=== PATIENT | female | born 1990 | race Caucasian/White ===

== ENCOUNTER 2017-03-21 22:09 | Emergency (ER) | payer OTHER ==
[~2017-03-21] VITALS: Ht 160 cm; Wt 90.7 kg
[~2017-03-21 22:09] MED LIST: AMETHIA 0.15-01 EACH PO; CYCLOBENZAPRINE5 MG PO; IBUPROFEN 800800 MG PO; NORCO 5-325 TA1 EACH PO
[2017-03-21 23:15] LABS: ABSOLUTE NEUTROPHILS 10.2 thou/uL (1.4-8.2); BASOPHILS 0.3 % (0.0-2.0); EOSINOPHILS 3.1 % (0.0-3.0); HEMATOCRIT 38.3 % (37.0-47.0); HEMOGLOBIN 12.4 gm/dL (12.0-15.0); MCH 26.1 pg (26.0-34.0); MCHC 32.4 g/dL (28.0-37.0); MCV 80.6 fL (80.0-100.0); MONOCYTES 8.5 % (1.0-8.0); PLATELET COUNT 450 thou/uL (150-400); POLYS 72.1 % (36.0-66.0); RBC 4.75 mil/uL (4.20-5.00); RDW 14.2 % (10.5-14.5); WBC 14.2 thou/uL (4.0-11.0)
[2017-03-21 23:17] LABS: MANUAL DIFF NO
[2017-03-21 23:19] LABS: URINE BILIRUBIN NEGATIVE (Negative); URINE BLOOD TRACE (Negative); URINE COLOR YELLOW; URINE GLUCOSE-RANDOM* NEGATIVE (Negative); URINE KETONES NEGATIVE (Negative); URINE NITRITE NEGATIVE (Negative); URINE PROTEIN (DIPSTICK) NEGATIVE (Negative); URINE SPECIFIC GRAVITY <= 1.005 (1.003-1.035); URINE UROBILINOGEN 0.2 E.U./dl (0.2-1.0)
[2017-03-21 23:27] LABS: CREATININE 0.8 mg/dL (0.6-1.0); POTASSIUM 3.5 mmol/L (3.5-5.1)
[2017-03-21 23:33] LABS: ALBUMIN 3.3 g/dL (3.4-5.0); TOTAL BILIRUBIN 0.3 mg/dL (<0.1-1.0); TOTAL PROTEIN 7.7 g/dL (6.4-8.2)
[2017-03-22] MEDS ORDERED: DIFLUCAN150 MG PO (03:51)
[2017-03-22] MEDS ORDERED: ZOFRAN ODT4 MG PO (03:51)
[2017-03-22] MEDS ORDERED: FLAGYL500 MG PO (03:51)
[2017-03-22 05:02] VITALS: BP 116/70
== END 2017-03-22 03:58 | disposition home or self-care (01) ==
LOC: ER 22:09
PROVIDERS: Nurse Practitioner Family
DX: K52.9 Noninfective gastroenteritis and colitis, unspecified (principal); M41.9 Scoliosis, unspecified; F32.9 Major depressive disorder, single episode, unspecified; J45.909 Unspecified asthma, uncomplicated; F17.210 Nicotine dependence, cigarettes, uncomplicated; F10.99 Alcohol use, unspecified with unspecified alcohol-induced disorder; Z88.2 Allergy status to sulfonamides

== ENCOUNTER → 2018-02-10 | Outpatient (CLI) | payer OTHER ==
[~2018-02-10] MED LIST changes: +DIFLUCAN150 MG PO; +FLAGYL500 MG PO; +ZOFRAN ODT4 MG PO
== END ==
LOC: HYPER 02-05 10:11
DX: T81.31XD Disruption of external operation (surgical) wound, not elsewhere classified, subsequent encounter (principal); K50.114 Crohn's disease of large intestine with abscess; K62.89 Other specified diseases of anus and rectum; K50.113 Crohn's disease of large intestine with fistula; J45.909 Unspecified asthma, uncomplicated; F32.9 Major depressive disorder, single episode, unspecified; F41.9 Anxiety disorder, unspecified; Z93.3 Colostomy status; Z87.891 Personal history of nicotine dependence; Y83.8 Other surgical procedures as the cause of abnormal reaction of the patient, or of later complication, without mention of misadventure at the time of the procedure

== ENCOUNTER → 2018-02-24 | Outpatient (CLI) | payer OTHER | LOC: HYPER 06:51 | DX: T81.31XD Disruption of external operation (surgical) wound, not elsewhere classified, subsequent encounter (principal); K50.114 Crohn's disease of large intestine with abscess; K50.113 Crohn's disease of large intestine with fistula; K62.89 Other specified diseases of anus and rectum; J45.909 Unspecified asthma, uncomplicated; M60.28 Foreign body granuloma of soft tissue, not elsewhere classified, other site; F32.9 Major depressive disorder, single episode, unspecified; F41.9 Anxiety disorder, unspecified; Z93.3 Colostomy status; Z87.891 Personal history of nicotine dependence; Y83.8 Other surgical procedures as the cause of abnormal reaction of the patient, or of later complication, without mention of misadventure at the time of the procedure ==

== ENCOUNTER → 2018-03-04 | Outpatient (CLI) | payer OTHER | LOC: HYPER 03-03 11:38 | DX: T81.31XD Disruption of external operation (surgical) wound, not elsewhere classified, subsequent encounter (principal); J45.909 Unspecified asthma, uncomplicated; K50.114 Crohn's disease of large intestine with abscess; K62.89 Other specified diseases of anus and rectum; K50.113 Crohn's disease of large intestine with fistula; M60.28 Foreign body granuloma of soft tissue, not elsewhere classified, other site; F32.9 Major depressive disorder, single episode, unspecified; F41.9 Anxiety disorder, unspecified; Z93.3 Colostomy status; Z87.891 Personal history of nicotine dependence; Y83.8 Other surgical procedures as the cause of abnormal reaction of the patient, or of later complication, without mention of misadventure at the time of the procedure ==

== ENCOUNTER → 2018-03-16 | Outpatient (CLI) | payer OTHER | LOC: HYPER 03-12 10:54 | DX: T81.31XD Disruption of external operation (surgical) wound, not elsewhere classified, subsequent encounter (principal); K50.114 Crohn's disease of large intestine with abscess; K62.89 Other specified diseases of anus and rectum; K50.113 Crohn's disease of large intestine with fistula; M60.28 Foreign body granuloma of soft tissue, not elsewhere classified, other site; J45.909 Unspecified asthma, uncomplicated; F32.9 Major depressive disorder, single episode, unspecified; F41.9 Anxiety disorder, unspecified; Z93.3 Colostomy status; Z87.891 Personal history of nicotine dependence; Y83.8 Other surgical procedures as the cause of abnormal reaction of the patient, or of later complication, without mention of misadventure at the time of the procedure ==

== ENCOUNTER → 2018-04-02 | Outpatient (CLI) | payer OTHER | LOC: HYPER 07:06 | DX: T81.31XD Disruption of external operation (surgical) wound, not elsewhere classified, subsequent encounter (principal); K50.114 Crohn's disease of large intestine with abscess; K62.89 Other specified diseases of anus and rectum; K50.113 Crohn's disease of large intestine with fistula; J45.909 Unspecified asthma, uncomplicated; M60.28 Foreign body granuloma of soft tissue, not elsewhere classified, other site; F32.9 Major depressive disorder, single episode, unspecified; F41.9 Anxiety disorder, unspecified; Z93.3 Colostomy status; Z87.891 Personal history of nicotine dependence; Y83.8 Other surgical procedures as the cause of abnormal reaction of the patient, or of later complication, without mention of misadventure at the time of the procedure ==

== ENCOUNTER → 2018-05-11 | Outpatient (CLI) | payer OTHER | LOC: HYPER 06:55 | DX: T81.31XD Disruption of external operation (surgical) wound, not elsewhere classified, subsequent encounter (principal); K50.114 Crohn's disease of large intestine with abscess; K62.89 Other specified diseases of anus and rectum; K50.113 Crohn's disease of large intestine with fistula; M60.28 Foreign body granuloma of soft tissue, not elsewhere classified, other site; J45.909 Unspecified asthma, uncomplicated; F32.9 Major depressive disorder, single episode, unspecified; F41.9 Anxiety disorder, unspecified; Z87.891 Personal history of nicotine dependence; Z95.3 Presence of xenogenic heart valve; Y83.8 Other surgical procedures as the cause of abnormal reaction of the patient, or of later complication, without mention of misadventure at the time of the procedure ==

== ENCOUNTER → 2018-06-09 | Outpatient (CLI) | payer OTHER | LOC: HYPER 07:06 | DX: T81.31XD Disruption of external operation (surgical) wound, not elsewhere classified, subsequent encounter (principal); K50.114 Crohn's disease of large intestine with abscess; K62.89 Other specified diseases of anus and rectum; K50.113 Crohn's disease of large intestine with fistula; J45.909 Unspecified asthma, uncomplicated; M60.28 Foreign body granuloma of soft tissue, not elsewhere classified, other site; F32.9 Major depressive disorder, single episode, unspecified; F41.9 Anxiety disorder, unspecified; Z93.3 Colostomy status; Z87.891 Personal history of nicotine dependence; Y83.8 Other surgical procedures as the cause of abnormal reaction of the patient, or of later complication, without mention of misadventure at the time of the procedure ==

== ENCOUNTER → 2018-07-21 | Outpatient (CLI) | payer OTHER | LOC: HYPER 06:53 | DX: T81.31XD Disruption of external operation (surgical) wound, not elsewhere classified, subsequent encounter (principal); K50.114 Crohn's disease of large intestine with abscess; K50.113 Crohn's disease of large intestine with fistula; K62.89 Other specified diseases of anus and rectum; M60.28 Foreign body granuloma of soft tissue, not elsewhere classified, other site; J45.909 Unspecified asthma, uncomplicated; F41.9 Anxiety disorder, unspecified; F32.9 Major depressive disorder, single episode, unspecified; Z93.3 Colostomy status; Z87.891 Personal history of nicotine dependence; Y83.8 Other surgical procedures as the cause of abnormal reaction of the patient, or of later complication, without mention of misadventure at the time of the procedure ==

== ENCOUNTER → 2018-09-08 | Outpatient (CLI) | payer OTHER | LOC: HYPER 06:41 | DX: T81.31XD Disruption of external operation (surgical) wound, not elsewhere classified, subsequent encounter (principal); K50.114 Crohn's disease of large intestine with abscess; K62.89 Other specified diseases of anus and rectum; K50.113 Crohn's disease of large intestine with fistula; J45.909 Unspecified asthma, uncomplicated; M60.28 Foreign body granuloma of soft tissue, not elsewhere classified, other site; F32.9 Major depressive disorder, single episode, unspecified; F41.9 Anxiety disorder, unspecified; Z93.3 Colostomy status; Z87.891 Personal history of nicotine dependence; Y83.8 Other surgical procedures as the cause of abnormal reaction of the patient, or of later complication, without mention of misadventure at the time of the procedure ==